=== PATIENT | female | born 1965 | race Caucasian/White ===

== ENCOUNTER 2016-12-30 20:31 | Emergency (ER) | payer MEDICAID ==
[~2016-12-30] VITALS: Ht 162.6 cm; Wt 64.0 kg
[~2016-12-30 20:31] MED LIST: GLIP2.5T; METF500T PO
[2016-12-31 01:09] LABS: CHLORIDE 98 mEq/L (98-107); INDEX HEMOLYSI 1 (1-3); INDEX ICTERIC 1 (1-4); INDEX LIPEMIC 1 (1-3)
[2016-12-31 01:10] LABS: BASOPHILS % 0.4 % (0.0-2.0); EOSINOPHILS % 2.1 % (0.0-5.0); HEMATOCRIT. 35.7 % (36.0-48.0); HEMOGLOBIN. 12.1 g/dL (12.0-16.0); LYMPHOCYTES % 43.9 % (20.0-50.0); MEAN CORPUSCULAR HEMOGLOBIN 30.1 pg (28.0-32.0); MEAN CORPUSCULAR VOLUME 88.5 fL (81.0-99.0); MEAN PLATELET VOLUME 10.1 fl (7.4-10.4); MONOCYTES % 4.7 % (2.0-8.0); NEUTROPHILS % 48.9 % (40.0-76.0); PLATELET 172 x1000/uL (130-400); RED BLOOD CELL COUNT 4.04 mill/uL (4.2-5.4); RED CELL DISTRIBUTION WIDTH 12.7 % (11.6-14.6); WHITE BLOOD COUNT 8.3 x1000/uL (4.5-11.0)
[2016-12-31 01:17] LABS: ANION GAP 12; BETA HYDROXYBUTYRATE 0.1 mMol/L (0.0-0.3); CALCIUM 9.1 mg/dL (8.5-10.1); CARBON DIOXIDE 29 mEq/L (21-32); UREA NITROGEN BLOOD 29 mg/dL (7-21); eGFR > 60 mL/min (>60)
[2016-12-31 02:47] LABS: CLARITY URINE CLEAR (CLEAR); COLOR URINE YELLOW (YELLOW); GLUCOSE URINE TRACE (NEGATIVE); KETONES URINE NEGATIVE (NEGATIVE); LEUKOCYTE ESTERASE URINE 2+ (NEGATIVE); NITRITE URINE NEGATIVE (NEGATIVE); OCCULT BLOOD URINE NEGATIVE (NEGATIVE); PH URINE 5.5 (4.5-8.0); PROTEIN URINE NEGATIVE (NEGATIVE); SPECIFIC GRAVITY URINE 1.011 (1.005-1.030); UROBILINOGEN URINE 0.2 E.U./dL (0.2-1.0)
[2016-12-31 03:11] LABS: BACTERIA URINE TRACE; RBC URINE 0-2 /hpf (0-2); SQUAMOUS EPITHELIAL CELL URINE FEW /lpf (RARE/1+)
[2016-12-31] MEDS ORDERED: LIDOCAINE HCL 1% 20ML VIAL (Pyxis) INJ MC ONE (03:15)
[2016-12-31] MEDS ORDERED: CEFTRIAXONE 1 G PREMIX 50 ML IV ONE (03:15)
[2016-12-31] MEDS ORDERED: CEFTRIAXONE SODIUM 1 G/VIAL IM ONE (03:30)
[2016-12-31] MEDS ORDERED: IBUPROFEN 600MG TABLET PO ONE (04:30)
[2016-12-31 04:36] VITALS: BP 119/71
== END 2016-12-31 04:57 | disposition home or self-care (01) ==
LOC: ER 20:31
DX: L03.115 Cellulitis of right lower limb (principal); E11.65 Type 2 diabetes mellitus with hyperglycemia; R03.0 Elevated blood-pressure reading, without diagnosis of hypertension; Z90.49 Acquired absence of other specified parts of digestive tract
CPT/HCPCS: 36415; 80048; 81001; 82010; 83036; 85025; 87040; 87086; 96372; 99284; J0696; J3490

== ENCOUNTER 2017-01-24 14:19 | Emergency (ER) | payer MEDICAID ==
[~2017-01-24] VITALS: Ht 157.5 cm; Wt 66.0 kg
[2017-01-24 17:22] LABS: CHLORIDE 101 mEq/L (98-107)
[2017-01-24 17:24] LABS: INR 1.1; PROTHROMBIN TIME 10.9 sec
[2017-01-24 17:25] LABS: CALCIUM 8.9 mg/dL (8.5-10.1); INDEX HEMOLYSI 1 (1-3); INDEX ICTERIC 1 (1-4); INDEX LIPEMIC 1 (1-3)
[2017-01-24 17:28] LABS: BASOPHILS % 0.2 % (0.0-2.0); EOSINOPHILS % 0.6 % (0.0-5.0); HEMATOCRIT. 36.2 % (36.0-48.0); HEMOGLOBIN. 12.2 g/dL (12.0-16.0); LYMPHOCYTES % 16.4 % (20.0-50.0); MEAN CORPUSCULAR HEMOGLOBIN 29.7 pg (28.0-32.0); MEAN CORPUSCULAR HGB CONC 33.8 g/dL (31.0-37.0); MEAN CORPUSCULAR VOLUME 87.8 fL (81.0-99.0); MEAN PLATELET VOLUME 9.9 fl (7.4-10.4); MONOCYTES % 5.8 % (2.0-8.0); PLATELET 177 x1000/uL (130-400); RED BLOOD CELL COUNT 4.12 mill/uL (4.2-5.4); RED CELL DISTRIBUTION WIDTH 13.1 % (11.6-14.6); WHITE BLOOD COUNT 11.7 x1000/uL (4.5-11.0)
[2017-01-24 17:31] LABS: ANION GAP 12; CARBON DIOXIDE 27 mEq/L (21-32); UREA NITROGEN BLOOD 22 mg/dL (7-21); eGFR > 60 mL/min (>60)
[2017-01-24 17:33] LABS: NT PRO B-TYPE NATRIURETIC PEP 241 pg/mL (5-125); TROPONIN I < 0.02 ng/mL (0.00-0.04)
[2017-01-24] MEDS ORDERED: KETOROLAC 30MG/ML VIAL IV STA (17:56)
[2017-01-24] MEDS ORDERED: SODIUM CHLORIDE 0.9% 1,000 ML IV ONE (17:56)
[2017-01-24 17:59] LABS: *AMPHETAMINES SCREEN URINE NEGATIVE (NEGATIVE); *BARBITURATES SCREEN URINE NEGATIVE (NEGATIVE); *BENZODIAZEPINES SCREEN URINE NEGATIVE (NEGATIVE); *COCAINE SCREEN URINE NEGATIVE (NEGATIVE); CANNABINOID URINE SCREEN NEGATIVE (NEGATIVE); ECSTASY MDMA SCREEN URINE NEGATIVE (NEGATIVE); METHADONE URINE SCREEN NEGATIVE (NEGATIVE); OPIATES URINE SCREEN NEGATIVE (NEGATIVE); PHENCYCLIDINE URINE SCREEN NEGATIVE (NEGATIVE)
[2017-01-24] MEDS ORDERED: ACETAMINOPHEN 325MG TABLET PO ONE (18:15)
[2017-01-24 18:30] LABS: CLARITY URINE CLOUDY (CLEAR); COLOR URINE YELLOW (YELLOW); GLUCOSE URINE 3+ (NEGATIVE); KETONES URINE NEGATIVE (NEGATIVE); LEUKOCYTE ESTERASE URINE 2+ (NEGATIVE); NITRITE URINE POSITIVE (NEGATIVE); OCCULT BLOOD URINE 1+ (NEGATIVE); PH URINE 5.5 (4.5-8.0); PROTEIN URINE 1+ (NEGATIVE); SPECIFIC GRAVITY URINE 1.019 (1.005-1.030); UROBILINOGEN URINE 0.2 E.U./dL (0.2-1.0)
[2017-01-24 18:52] LABS: BACTERIA URINE 3+; SQUAMOUS EPITHELIAL CELL URINE 1+ /lpf (RARE/1+)
[2017-01-24 18:53] LABS: WBC URINE 50-100 /hpf (0-2)
[2017-01-24] MEDS ORDERED: CEFTRIAXONE 1 G PREMIX 50 ML IV ONE (19:00)
[2017-01-24 20:57] VITALS: BP 101/54
== END 2017-01-24 21:06 | disposition home or self-care (01) ==
LOC: ER 14:19
DX: N10 Acute pyelonephritis (principal); E11.65 Type 2 diabetes mellitus with hyperglycemia; Z90.49 Acquired absence of other specified parts of digestive tract
CPT/HCPCS: 36415; 71010; 80048; 80305; 81001; 81025; 83880; 84484; 85025; 85610; 93005; 96361; 96365; 96375; 99285; J0696; J1885; J7030; Z7610

== ENCOUNTER 2017-02-12 08:49 | Emergency (ER) | payer MEDICAID ==
[~2017-02-12] VITALS: Ht 157.5 cm; Wt 63.3 kg
[2017-02-12] MEDS ORDERED: IBUPROFEN 600MG TABLET PO ONE (12:00)
[2017-02-12 12:05] VITALS: BP 133/82
== END 2017-02-12 12:22 | disposition home or self-care (01) ==
LOC: ER 09:48
DX: L97.919 Non-pressure chronic ulcer of unspecified part of right lower leg with unspecified severity (principal); E11.9 Type 2 diabetes mellitus without complications; E78.00 Pure hypercholesterolemia, unspecified; Z88.5 Allergy status to narcotic agent; Z79.4 Long term (current) use of insulin; Z79.899 Other long term (current) drug therapy; Z90.49 Acquired absence of other specified parts of digestive tract
CPT/HCPCS: 82962; 99283

== ENCOUNTER 2017-04-11 07:50 | Emergency (ER) | payer MEDICAID ==
[~2017-04-11] VITALS: Ht 154.9 cm; Wt 64.0 kg
[2017-04-11 07:51] VITALS: BP 145/83
[2017-04-11] MEDS ORDERED: BACITRACIN ZINC OINT UDPKT TOP ONE (08:45)
[2017-04-11] MEDS ORDERED: LIDOCAINE HCL 1%/EPI 1:200,000 30 ML VIAL MC ONE (08:45)
[2017-04-11] MEDS ORDERED: KETOROLAC 60MG/2ML VIAL IM ONE (08:45)
[2017-04-11] MEDS ORDERED: TETANUS, DIPHTHERIA, PERTUSSIS VAC/PF 0.5ML (>7YR OLD) IM ONE (11:15)
== END 2017-04-11 10:45 | disposition home or self-care (01) ==
LOC: ER 08:52
DX: L02.811 Cutaneous abscess of head [any part, except face] (principal); Z88.8 Allergy status to other drugs, medicaments and biological substances; E11.9 Type 2 diabetes mellitus without complications; E78.00 Pure hypercholesterolemia, unspecified; Z90.49 Acquired absence of other specified parts of digestive tract
CPT/HCPCS: 10060; 90471; 90715; 96372; 99284; J1885; Z7610

== ENCOUNTER 2017-04-13 07:09 | Emergency (ER) | payer MEDICAID ==
[~2017-04-13] VITALS: Ht 154.9 cm; Wt 65.0 kg
[2017-04-13] MEDS ORDERED: IBUPROFEN 600MG TABLET PO ONE (10:30)
[2017-04-13 10:45] VITALS: BP 161/79
== END 2017-04-13 11:57 | disposition home or self-care (01) ==
LOC: ER 09:06
DX: Z48.00 Encounter for change or removal of nonsurgical wound dressing (principal); L02.811 Cutaneous abscess of head [any part, except face]; Z88.8 Allergy status to other drugs, medicaments and biological substances
CPT/HCPCS: 99283; X7700

== ENCOUNTER 2017-06-29 07:22 | Emergency (ER) | payer MEDICAID ==
[~2017-06-29] VITALS: Ht 154.9 cm; Wt 64.0 kg
[2017-06-29 09:12] LABS: BASOPHILS % 0.6 % (0.0-2.0); EOSINOPHILS % 3.2 % (0.0-5.0); HEMATOCRIT. 35.8 % (36.0-48.0); HEMOGLOBIN. 12.5 g/dL (12.0-16.0); LYMPHOCYTES % 28.9 % (20.0-50.0); MEAN CORPUSCULAR HEMOGLOBIN 30.8 pg (28.0-32.0); MEAN CORPUSCULAR VOLUME 87.9 fL (81.0-99.0); MEAN PLATELET VOLUME 9.9 fl (7.4-10.4); MONOCYTES % 6.4 % (2.0-8.0); NEUTROPHILS % 60.9 % (40.0-76.0); PLATELET 155 x1000/uL (130-400); RED BLOOD CELL COUNT 4.07 mill/uL (4.2-5.4); RED CELL DISTRIBUTION WIDTH 13.7 % (11.6-14.6)
[2017-06-29 09:17] LABS: CHLORIDE 99 mEq/L (98-107)
[2017-06-29 09:20] LABS: CARBON DIOXIDE 30 mEq/L (21-32)
[2017-06-29 09:25] LABS: BETA HYDROXYBUTYRATE 0.2 mMol/L (0.0-0.3)
[2017-06-29] MEDS ORDERED: INSULIN REGULAR (HUMULIN R) 300UNITS/3ML SUBCUT ONE (09:45)
[2017-06-29 10:52] VITALS: BP 147/59
== END 2017-06-29 13:44 | disposition home or self-care (01) ==
LOC: ER 08:14
DX: S92.354A Nondisplaced fracture of fifth metatarsal bone, right foot, initial encounter for closed fracture (principal); E11.65 Type 2 diabetes mellitus with hyperglycemia; E78.00 Pure hypercholesterolemia, unspecified; Z88.6 Allergy status to analgesic agent; Z79.4 Long term (current) use of insulin; Z90.49 Acquired absence of other specified parts of digestive tract; X58.XXXA Exposure to other specified factors, initial encounter; Y93.89 Activity, other specified; Y92.018 Other place in single-family (private) house as the place of occurrence of the external cause
CPT/HCPCS: 36415; 73630; 80053; 82010; 82962; 85025; 96372; 99285; J1815; Z7610

== ENCOUNTER 2017-12-05 05:04 | Emergency (ER) | payer MEDICAID ==
[~2017-12-05] VITALS: Ht 154.9 cm; Wt 63.6 kg
[2017-12-05 09:55] VITALS: BP 104/56
== END 2017-12-05 10:06 | disposition home or self-care (01) ==
LOC: ER 05:04
DX: L02.811 Cutaneous abscess of head [any part, except face] (principal); E11.9 Type 2 diabetes mellitus without complications; E78.00 Pure hypercholesterolemia, unspecified; Z90.49 Acquired absence of other specified parts of digestive tract; Z88.6 Allergy status to analgesic agent
CPT/HCPCS: 99283

== ENCOUNTER 2019-09-26 16:59 | Inpatient (IN) | payer MEDICAID, OTHER ==
[~2019-09-26] VITALS: Ht 157.5 cm; Wt 57.6 kg
[2019-09-26] MEDS ORDERED: SODIUM CHLORIDE 0.9% 1000ML BAG (SEPSIS BOLUS) IV ONE (21:30)
[2019-09-26] MEDS ORDERED: CEFTRIAXONE 1 G PREMIX 50 ML IV ONE (21:30)
[2019-09-26 22:46] LABS: CLARITY URINE CLOUDY (CLEAR); COLOR URINE YELLOW (YELLOW); KETONES URINE NEGATIVE (NEGATIVE); LEUKOCYTE ESTERASE URINE 2+ (NEGATIVE); NITRITE URINE POSITIVE (NEGATIVE); OCCULT BLOOD URINE NEGATIVE (NEGATIVE); PROTEIN URINE 1+ (NEGATIVE)
[2019-09-26 22:50] LABS: BASOPHILS % 0.6 % (0.0-2.0); EOSINOPHILS % 1.5 % (0.0-5.0); HEMATOCRIT. 31.4 % (36.0-48.0); HEMOGLOBIN. 11.3 g/dL (12.0-16.0); LYMPHOCYTES % 28.6 % (20.0-50.0); MEAN CORPUSCULAR HEMOGLOBIN 31.4 pg (28.0-32.0); MEAN CORPUSCULAR VOLUME 87.4 fL (81.0-99.0); MEAN PLATELET VOLUME 11.2 fl (7.4-10.4); MONOCYTES % 7.9 % (2.0-8.0); NEUTROPHILS % 61.4 % (40.0-76.0); PLATELET 131 x1000/uL (130-400); RED BLOOD CELL COUNT 3.59 mill/uL (4.2-5.4); RED CELL DISTRIBUTION WIDTH 12.2 % (11.6-14.6)
[2019-09-26 22:55] LABS: CHLORIDE 98 mEq/L (98-107)
[2019-09-27] MEDS ORDERED: MORPHINE SULFATE 4 MG/ML CPJ (NOT FOR IM USE) IV ONE (00:15)
[2019-09-27 12:30] VITALS: BP 128/69
[2019-09-27] MEDS ORDERED: GLIP10TA10 PO (15:06)
[2019-09-27] MEDS ORDERED: METF-416 PO (15:06)
[2019-09-27] MEDS ORDERED: METF-414 MT (15:06)
[2019-09-27] MEDS ORDERED: ACETAMINOPHEN 325MG TABLET PO PRN (15:15)
[2019-09-27] MEDS ORDERED: KETOROLAC 30MG/ML VIAL IV PRN (15:15)
[2019-09-27] MEDS ORDERED: DEXTROSE 50% WATER 50ML SYRINGE IV PRN (15:15)
[2019-09-27] MEDS ORDERED: HYDROCODONE/ACETAMINOPHEN 5/325MG TABLET PO PRN (15:15)
[2019-09-27] MEDS ORDERED: ONDANSETRON HCL 4MG/2ML INJ IV PRN (15:15)
[2019-09-27 16:00] VITALS: BP 152/91
[2019-09-27] MEDS: BLOOD SUGAR DIAGNOSTIC STRIP TEST SCH ×2 (17:15→21:59)
[2019-09-27 17:52] VITALS: BP 128/69
[2019-09-27] MEDS ORDERED: CEFTRIAXONE 1 G PREMIX 50 ML IV SCH (18:00)
[2019-09-27] MEDS ORDERED: INSULIN LISPRO 100 UNITS/ML SUBCUT NR (18:15)
[2019-09-27] MEDS: SODIUM CHLORIDE 0.9% 1,000 ML IV SCH (18:32)
[2019-09-27] MEDS: INSULIN LISPRO 100 UNITS/ML SUBCUT SCH ×2 (18:33→22:03)
[2019-09-27 20:00] VITALS: BP 142/79
[2019-09-27] MEDS: INSULIN GLARGINE UD 100 UNITS/ML SYR SUBCUT SCH (22:05)
[2019-09-28] VITALS: BP 137/80
[2019-09-28 04:00] VITALS: BP 144/80
[2019-09-28] MEDS: BLOOD SUGAR DIAGNOSTIC STRIP TEST SCH ×3 (06:30→16:09)
[2019-09-28] MEDS: SODIUM CHLORIDE 0.9% 1,000 ML IV SCH (06:31)
[2019-09-28] MEDS: INSULIN LISPRO 100 UNITS/ML SUBCUT SCH ×2 (06:39→12:15)
[2019-09-28 06:47] LABS: CHLORIDE 104 mEq/L (98-107)
[2019-09-28 07:39] LABS: BASOPHILS % 0.4 % (0.0-2.0); EOSINOPHILS % 1.3 % (0.0-5.0); HEMATOCRIT. 27.5 % (36.0-48.0); HEMOGLOBIN. 9.8 g/dL (12.0-16.0); LYMPHOCYTES % 28.6 % (20.0-50.0); MEAN CORPUSCULAR HEMOGLOBIN 30.9 pg (28.0-32.0); MEAN CORPUSCULAR VOLUME 86.7 fL (81.0-99.0); MEAN PLATELET VOLUME 10.9 fl (7.4-10.4); MONOCYTES % 8.7 % (2.0-8.0); PLATELET 130 x1000/uL (130-400); RED BLOOD CELL COUNT 3.18 mill/uL (4.2-5.4); RED CELL DISTRIBUTION WIDTH 12.2 % (11.6-14.6)
[2019-09-28 08:00] VITALS: BP 128/80
[2019-09-28] MEDS ORDERED: GLIPIZIDE 10MG TABLET PO SCH (10:15)
[2019-09-28] MEDS: INSULIN GLARGINE UD 100 UNITS/ML SYR SUBCUT SCH (11:09)
[2019-09-28] MEDS ORDERED: LEVO500T2 MT (16:26)
[2019-09-28 17:30] VITALS: BP 116/52
== END 2019-09-28 17:50 | disposition home or self-care (01) | DRG 720 ==
LOC: ER 16:59 → 5WST 09-27 00:16 → EDBEDREQSVC 09-27 00:22 → EDBEDREQ 09-27 00:22 → EDBEDREQTM 09-27 00:22 → ENRESERV 09-27 13:12
PROVIDERS: ADMIT Internal Medicine Nephrology; ATTEND Internal Medicine Nephrology
DX: A41.9 Sepsis, unspecified organism (principal); E44.0 Moderate protein-calorie malnutrition; E11.65 Type 2 diabetes mellitus with hyperglycemia; E87.1 Hypo-osmolality and hyponatremia; K76.0 Fatty (change of) liver, not elsewhere classified; D64.9 Anemia, unspecified; E78.00 Pure hypercholesterolemia, unspecified; E78.5 Hyperlipidemia, unspecified; N13.6 Pyonephrosis; Z90.49 Acquired absence of other specified parts of digestive tract; Z68.23 Body mass index [BMI] 23.0-23.9, adult; Z88.5 Allergy status to narcotic agent; Z79.899 Other long term (current) drug therapy; Z79.84 Long term (current) use of oral hypoglycemic drugs
CPT/HCPCS: 36415; 71045; 74176; 80048; 81003; 82962; 83036; 83605; 84145; 87077; 87186; 99285; J0696; J1815; J2270; J2405; J7030

== ENCOUNTER 2021-08-02 06:28 | Emergency (ER) | payer MEDICAID ==
[~2021-08-02] VITALS: Ht 154.9 cm; Wt 64.0 kg
[~2021-08-02 06:28] MED LIST changes: +GLIP10TA10 PO; -GLIP2.5T; +LEVO500T2 MT; +METF-414 MT; +METF-416 PO; -METF500T PO
[2021-08-02] MEDS ORDERED: KETOROLAC 60MG/2ML VIAL IM ONE (07:15)
[2021-08-02 07:16] VITALS: BP 138/56
[2021-08-02] MEDS ORDERED: IBUP-2028 PO (08:31)
== END 2021-08-02 09:06 | disposition home or self-care (01) ==
LOC: ER 06:28
DX: S93.492A Sprain of other ligament of left ankle, initial encounter (principal); M25.562 Pain in left knee; E11.9 Type 2 diabetes mellitus without complications; W01.0XXA Fall on same level from slipping, tripping and stumbling without subsequent striking against object, initial encounter; Y93.89 Activity, other specified; Y92.89 Other specified places as the place of occurrence of the external cause
CPT/HCPCS: 73590; 73600; 96372; 99284; J1885; Z7610

== ENCOUNTER 2021-12-28 06:05 | Emergency (ER) | payer MEDICAID, OTHER ==
[~2021-12-28] VITALS: Ht 154.9 cm; Wt 62.0 kg
[~2021-12-28 06:05] MED LIST changes: +IBUP-2028 PO
[2021-12-28] MEDS ORDERED: ACETAMINOPHEN 325MG TABLET PO STA (06:42)
[2021-12-28] MEDS ORDERED: SODIUM CHLORIDE 0.9% 1,000 ML IV ONE (06:45)
[2021-12-28] MEDS ORDERED: CEFTRIAXONE 1 G PREMIX 50 ML IV ONE (06:45)
[2021-12-28 07:03] LABS: CLARITY URINE CLOUDY (CLEAR); COLOR URINE YELLOW (YELLOW); KETONES URINE NEGATIVE (NEGATIVE); LEUKOCYTE ESTERASE URINE 2+ (NEGATIVE); NITRITE URINE POSITIVE (NEGATIVE); OCCULT BLOOD URINE 3+ (NEGATIVE); PH URINE 5.5 (4.5-8.0); PROTEIN URINE 3+ (NEGATIVE); SPECIFIC GRAVITY URINE 1.016 (1.005-1.030)
[2021-12-28 07:17] LABS: BASOPHILS % 0.5 % (0.0-2.0); EOSINOPHILS % 2.7 % (0.0-5.0); HEMATOCRIT. 31.9 % (36.0-48.0); HEMOGLOBIN. 11.1 g/dL (12.0-16.0); LYMPHOCYTES % 40.7 % (20.0-50.0); MEAN CORPUSCULAR HEMOGLOBIN 29.9 pg (28.0-32.0); MEAN CORPUSCULAR VOLUME 85.8 fL (81.0-99.0); MEAN PLATELET VOLUME 9.9 fl (7.4-10.4); MONOCYTES % 5.7 % (2.0-8.0); NEUTROPHILS % 50.4 % (40.0-76.0); PLATELET 184 x1000/uL (130-400); RED BLOOD CELL COUNT 3.72 mill/uL (4.2-5.4); RED CELL DISTRIBUTION WIDTH 13.4 % (11.6-14.6)
[2021-12-28 07:25] LABS: CHLORIDE 108 mEq/L (98-107)
[2021-12-28] MEDS ORDERED: IBUP-2029 MT (08:05)
[2021-12-28] MEDS ORDERED: CEPH500T MT (08:05)
[2021-12-28] MEDS ORDERED: KETOROLAC 15MG/ML VIAL IV ONE (08:30)
[2021-12-28 09:50] VITALS: BP 142/81
== END 2021-12-28 10:19 | disposition home or self-care (01) ==
LOC: ER 06:05
DX: N12 Tubulo-interstitial nephritis, not specified as acute or chronic (principal); E11.9 Type 2 diabetes mellitus without complications; E78.00 Pure hypercholesterolemia, unspecified; Z88.5 Allergy status to narcotic agent; Z90.49 Acquired absence of other specified parts of digestive tract
CPT/HCPCS: 36415; 80053; 81003; 85025; 87040; 87077; 87086; 87186; 96365; 99284; J0696; J7030

== ENCOUNTER 2022-03-21 19:42 | Emergency (ER) | payer MEDICAID, OTHER ==
[~2022-03-21] VITALS: Ht 154.9 cm; Wt 65.1 kg
[~2022-03-21 19:42] MED LIST changes: +CEPH500T MT; +IBUP-2029 MT
[2022-03-21 22:20] LABS: BASOPHILS % 0.3 % (0.0-2.0); EOSINOPHILS % 4.2 % (0.0-5.0); HEMATOCRIT. 28.6 % (36.0-48.0); HEMOGLOBIN. 9.9 g/dL (12.0-16.0); LYMPHOCYTES % 25.2 % (20.0-50.0); MEAN CORPUSCULAR HEMOGLOBIN 30.5 pg (28.0-32.0); MEAN CORPUSCULAR VOLUME 88.3 fL (81.0-99.0); MEAN PLATELET VOLUME 9.4 fl (7.4-10.4); MONOCYTES % 7.7 % (2.0-8.0); NEUTROPHILS % 62.6 % (40.0-76.0); PLATELET 187 x1000/uL (130-400); RED BLOOD CELL COUNT 3.24 mill/uL (4.2-5.4); RED CELL DISTRIBUTION WIDTH 12.9 % (11.6-14.6)
[2022-03-21 22:47] LABS: CHLORIDE 107 mEq/L (98-107)
[2022-03-21 22:54] VITALS: BP 169/67
[2022-03-22 00:01] LABS: CLARITY URINE CLOUDY (CLEAR); COLOR URINE YELLOW (YELLOW); KETONES URINE NEGATIVE (NEGATIVE); LEUKOCYTE ESTERASE URINE 1+ (NEGATIVE); NITRITE URINE NEGATIVE (NEGATIVE); OCCULT BLOOD URINE TRACE (NEGATIVE); PH URINE 6.5 (4.5-8.0); PROTEIN URINE 3+ (NEGATIVE); SPECIFIC GRAVITY URINE 1.012 (1.005-1.030); UROBILINOGEN URINE 0.2 E.U./dL (0.2-1.0)
== END 2022-03-21 23:57 | disposition home or self-care (01) ==
LOC: ER 19:42
DX: T78.1XXA Other adverse food reactions, not elsewhere classified, initial encounter (principal); R60.0 Localized edema; E11.9 Type 2 diabetes mellitus without complications; E78.00 Pure hypercholesterolemia, unspecified; Z98.890 Other specified postprocedural states; Z79.84 Long term (current) use of oral hypoglycemic drugs; Z88.5 Allergy status to narcotic agent; X58.XXXA Exposure to other specified factors, initial encounter
CPT/HCPCS: 36415; 71045; 80053; 81003; 82962; 83880; 85025; 87077; 87186; 93970; 99285

== ENCOUNTER 2022-05-02 23:17 | Inpatient (IN) | payer OTHER ==
[~2022-05-02] VITALS: Ht 154.9 cm; Wt 62.6 kg
[2022-05-03 01:39] LABS: BASOPHILS % 0.6 % (0.0-2.0); HEMATOCRIT. 28.3 % (36.0-48.0); HEMOGLOBIN. 9.6 g/dL (12.0-16.0); LYMPHOCYTES % 30.8 % (20.0-50.0); MEAN CORPUSCULAR HEMOGLOBIN 29.1 pg (28.0-32.0); MEAN CORPUSCULAR VOLUME 86.4 fL (81.0-99.0); MEAN PLATELET VOLUME 9.1 fl (7.4-10.4); NEUTROPHILS % 58.6 % (40.0-76.0); PLATELET 204 x1000/uL (130-400); RED BLOOD CELL COUNT 3.28 mill/uL (4.2-5.4); RED CELL DISTRIBUTION WIDTH 13.3 % (11.6-14.6)
[2022-05-03 01:41] LABS: CHLORIDE 105 mEq/L (98-107)
[2022-05-03 01:49] LABS: C REACTIVE PROTEIN QUANT 5.5 mg/L (0.0-3.0)
[2022-05-03] MEDS ORDERED: VANCOMYCIN 1G PREMIX 200 ML IV SCH (02:15)
[2022-05-03] MEDS ORDERED: ACETAMINOPHEN 325MG TABLET PO PRN (10:15)
[2022-05-03] MEDS ORDERED: DEXTROSE 50% WATER 50ML SYRINGE IV PRN (10:15)
[2022-05-03] MEDS ORDERED: ONDANSETRON HCL 4MG/2ML INJ IV PRN (10:15)
[2022-05-03] MEDS: INSULIN LISPRO 100 UNITS/ML SUBCUT SCH ×4 (12:00→21:00)
[2022-05-03] MEDS: BLOOD SUGAR DIAGNOSTIC STRIP TEST SCH ×3 (12:08→20:33)
[2022-05-03 12:48] LABS: CLARITY URINE CLEAR (CLEAR); COLOR URINE YELLOW (YELLOW); KETONES URINE NEGATIVE (NEGATIVE); LEUKOCYTE ESTERASE URINE 2+ (NEGATIVE); NITRITE URINE NEGATIVE (NEGATIVE); OCCULT BLOOD URINE NEGATIVE (NEGATIVE); PROTEIN URINE 2+ (NEGATIVE); UROBILINOGEN URINE 0.2 E.U./dL (0.2-1.0)
[2022-05-03 13:00] VITALS: BP 146/72
[2022-05-03] MEDS ORDERED: ATOR10TA69 PO (14:14)
[2022-05-03] MEDS ORDERED: DULO60CA45 PO (14:14)
[2022-05-03 14:16] VITALS: BP 146/72
[2022-05-03 16:00] VITALS: BP 114/58
[2022-05-03] MEDS ORDERED: HYDROCODONE/ACETAMINOPHEN 10/325MG TABLET PO PRN (17:15)
[2022-05-03] MEDS: LISINOPRIL 20MG TABLET PO SCH (18:37)
[2022-05-03] MEDS: TRAMADOL 50MG TABLET PO PRN (18:38)
[2022-05-03] MEDS: DULOXETINE HCL 30MG DR CAPSULE PO SCH (18:38)
[2022-05-03] MEDS: PIPERACILLIN/TAZOBACTAM 3.375G in DEXT 5% WATER 50ML IV SCH (18:39)
[2022-05-03 20:00] VITALS: BP 106/52
[2022-05-03] MEDS: MORPHINE SULFATE 2 MG/ML CPJ (NOT FOR IM USE) IV PRN (20:54)
[2022-05-03] MEDS ORDERED: INSULIN GLARGINE 100 UNITS/ML SUBCUT SCH (22:00)
[2022-05-04] VITALS: BP 108/50
[2022-05-04 04:00] VITALS: BP 103/56
[2022-05-04] MEDS: PIPERACILLIN/TAZOBACTAM 3.375G in DEXT 5% WATER 50ML IV SCH ×3 (05:09→21:45)
[2022-05-04] MEDS: TRAMADOL 50MG TABLET PO PRN (05:10)
[2022-05-04 06:02] LABS: BASOPHILS % 0.3 % (0.0-2.0); HEMOGLOBIN. 8.8 g/dL (12.0-16.0); LYMPHOCYTES % 32.6 % (20.0-50.0); MEAN CORPUSCULAR VOLUME 85.9 fL (81.0-99.0); MEAN PLATELET VOLUME 9.7 fl (7.4-10.4); NEUTROPHILS % 57.1 % (40.0-76.0); PLATELET 177 x1000/uL (130-400); RED BLOOD CELL COUNT 3.03 mill/uL (4.2-5.4); RED CELL DISTRIBUTION WIDTH 13.3 % (11.6-14.6)
[2022-05-04] MEDS: BLOOD SUGAR DIAGNOSTIC STRIP TEST SCH ×4 (06:56→21:00)
[2022-05-04] MEDS: INSULIN LISPRO 100 UNITS/ML SUBCUT SCH ×4 (07:50→18:43)
[2022-05-04 08:00] VITALS: BP 140/56
[2022-05-04] MEDS ORDERED: PIPERACILLIN/TAZOBACTAM 3.375GM/50ML PREMIX IV SCH (08:00)
[2022-05-04] MEDS: DULOXETINE HCL 30MG DR CAPSULE PO SCH (09:38)
[2022-05-04] MEDS: LISINOPRIL 20MG TABLET PO SCH (09:38)
[2022-05-04 12:00] VITALS: BP 106/53
[2022-05-04] MEDS: MORPHINE SULFATE 2 MG/ML CPJ (NOT FOR IM USE) IV PRN (13:45)
[2022-05-04] MEDS ORDERED: NALOXONE HCL 0.4MG/ML VIAL IV PRN (15:00)
[2022-05-04 16:00] VITALS: BP 95/43
[2022-05-04] MEDS: INSULIN GLARGINE 100 UNITS/ML SUBCUT SCH (21:19)
[2022-05-05] VITALS: BP 99/50
[2022-05-05] MEDS: MORPHINE SULFATE 2 MG/ML CPJ (NOT FOR IM USE) IV PRN ×3 (01:01→23:03)
[2022-05-05 04:00] VITALS: BP 102/46
[2022-05-05] MEDS: PIPERACILLIN/TAZOBACTAM 3.375G in DEXT 5% WATER 50ML IV SCH ×3 (05:21→22:48)
[2022-05-05] MEDS: BLOOD SUGAR DIAGNOSTIC STRIP TEST SCH ×4 (07:20→21:00)
[2022-05-05] MEDS: INSULIN LISPRO 100 UNITS/ML SUBCUT SCH ×4 (07:50→21:00)
[2022-05-05 08:49] VITALS: BP 106/48
[2022-05-05] MEDS: LISINOPRIL 20MG TABLET PO SCH (10:49)
[2022-05-05] MEDS: DULOXETINE HCL 30MG DR CAPSULE PO SCH (10:49)
[2022-05-05 12:15] VITALS: BP 91/48
[2022-05-05 15:31] VITALS: BP 109/54
[2022-05-05] MEDS: TRAMADOL 50MG TABLET PO PRN (18:19)
[2022-05-05 20:00] VITALS: BP 119/44
[2022-05-05] MEDS: INSULIN GLARGINE 100 UNITS/ML SUBCUT SCH (22:58)
[2022-05-06] VITALS: BP 117/52
[2022-05-06 04:00] VITALS: BP 130/68
[2022-05-06] MEDS: TRAMADOL 50MG TABLET PO PRN (06:22)
[2022-05-06] MEDS: PIPERACILLIN/TAZOBACTAM 3.375G in DEXT 5% WATER 50ML IV SCH (06:22)
[2022-05-06] MEDS: BLOOD SUGAR DIAGNOSTIC STRIP TEST SCH ×2 (07:16→12:18)
[2022-05-06] MEDS: INSULIN LISPRO 100 UNITS/ML SUBCUT SCH ×2 (07:50→12:18)
[2022-05-06 08:20] VITALS: BP 143/49
[2022-05-06] MEDS: LISINOPRIL 20MG TABLET PO SCH (09:23)
[2022-05-06] MEDS: DULOXETINE HCL 30MG DR CAPSULE PO SCH (09:23)
[2022-05-06] MEDS: MORPHINE SULFATE 2 MG/ML CPJ (NOT FOR IM USE) IV PRN (09:43)
[2022-05-06] MEDS ORDERED: LEVO500T90 MT (11:12)
[2022-05-06 12:00] VITALS: BP 109/49
[2022-05-06 12:38] VITALS: BP 143/49
[2022-05-06 16:00] VITALS: BP 146/62
== END 2022-05-06 18:45 | disposition home or self-care (01) | DRG 380 ==
LOC: ER 23:36 → MICUSO 05-03 08:30 → 6EST 05-03 12:49
PROVIDERS: ADMIT Internal Medicine; ATTEND Internal Medicine
PROC: 0JBQ0ZZ Excision of Right Foot Subcutaneous Tissue and Fascia, Open Approach (ICD-10-PCS; principal; 2022-05-03)
DX: E11.621 Type 2 diabetes mellitus with foot ulcer (principal); L97.519 Non-pressure chronic ulcer of other part of right foot with unspecified severity; N17.0 Acute kidney failure with tubular necrosis; E44.0 Moderate protein-calorie malnutrition; D64.9 Anemia, unspecified; Z79.2 Long term (current) use of antibiotics; Z68.26 Body mass index [BMI] 26.0-26.9, adult; Z79.84 Long term (current) use of oral hypoglycemic drugs; Z88.6 Allergy status to analgesic agent; Z79.899 Other long term (current) drug therapy; Z98.891 History of uterine scar from previous surgery
CPT/HCPCS: 36415; 73630; 80048; 80053; 80061; 81003; 82962; 83036; 85025; 85651; 86140; 93923; 99285; J1815; J2270; J2543; J3370; J7060

== ENCOUNTER 2022-09-06 03:42 | Emergency (ER) | payer MEDICAID, OTHER ==
[~2022-09-06] VITALS: Ht 160 cm; Wt 66.0 kg
[~2022-09-06 03:42] MED LIST changes: +ATOR10TA69 PO; -CEPH500T MT; +DULO60CA45 PO; +LEVO-65 MT; -LEVO500T2 MT
[2022-09-06 03:46] VITALS: BP 118/72
[2022-09-06] MEDS ORDERED: KETOROLAC 60MG/2ML VIAL IM STA (07:42)
[2022-09-06] MEDS ORDERED: ACETAMINOPHEN 325MG TABLET PO ONE (08:15)
[2022-09-06 08:16] LABS: CLARITY URINE CLEAR (CLEAR); COLOR URINE YELLOW (YELLOW); KETONES URINE NEGATIVE (NEGATIVE); LEUKOCYTE ESTERASE URINE 1+ (NEGATIVE); NITRITE URINE NEGATIVE (NEGATIVE); OCCULT BLOOD URINE NEGATIVE (NEGATIVE); PROTEIN URINE 3+ (NEGATIVE); SPECIFIC GRAVITY URINE 1.014 (1.005-1.030); UROBILINOGEN URINE 0.2 E.U./dL (0.2-1.0)
[2022-09-06] MEDS ORDERED: CEPH500C2 MT (08:55)
[2022-09-06] MEDS ORDERED: TOPUD MT (08:55)
== END 2022-09-06 09:02 | disposition home or self-care (01) ==
LOC: ER 03:42
DX: N12 Tubulo-interstitial nephritis, not specified as acute or chronic (principal); E11.9 Type 2 diabetes mellitus without complications; E78.00 Pure hypercholesterolemia, unspecified; Z88.5 Allergy status to narcotic agent; Z79.899 Other long term (current) drug therapy; Z98.890 Other specified postprocedural states
CPT/HCPCS: 81003; 99283; J1885

== ENCOUNTER 2023-04-12 01:43 | Emergency (ER) | payer MEDICAID, OTHER ==
[~2023-04-12] VITALS: Ht 162.6 cm; Wt 60.0 kg
[~2023-04-12 01:43] MED LIST changes: +CEPH500C2 MT; +TOPUD MT
[2023-04-12 02:14] VITALS: BP 137/53; O2SAT 100
[2023-04-12 02:40] VITALS: PULSE 82; RESP 16
[2023-04-12] MEDS ORDERED: ACETAMINOPHEN 325MG TABLET PO ONE (06:15)
[2023-04-12 06:34] VITALS: TEMP 97.7
[2023-04-12] MEDS ORDERED: IBUP-2029 MT (07:18)
== END 2023-04-12 07:44 | disposition home or self-care (01) ==
LOC: ER 01:43
DX: M54.50 Low back pain, unspecified (principal); E11.9 Type 2 diabetes mellitus without complications; E78.00 Pure hypercholesterolemia, unspecified; Z79.899 Other long term (current) drug therapy; W18.39XA Other fall on same level, initial encounter; Y93.89 Activity, other specified; Y92.89 Other specified places as the place of occurrence of the external cause; Y99.8 Other external cause status
CPT/HCPCS: 71045; 72100; 99284

== ENCOUNTER 2024-10-14 21:41 | Emergency (ER) | payer MEDICAID, OTHER ==
[~2024-10-14] VITALS: Ht 154.9 cm; Wt 66.0 kg
[~2024-10-14 21:41] MED LIST changes: -GLIP10TA10 PO; +GLIP10TA17 PO
[2024-10-14 22:16] VITALS: O2SAT 98
[2024-10-15] MEDS: KETOROLAC 15MG/ML VIAL IM ONE (03:15)
[2024-10-15] MEDS ORDERED: LIDO700A15 TP (05:59)
[2024-10-15] MEDS ORDERED: NAPR-1176 MT (05:59)
[2024-10-15] MEDS ORDERED: METH-653 MT (05:59)
[2024-10-15 06:34] VITALS: BP 138/65; PULSE 72; RESP 17; TEMP 36.89184; O2SAT 100
== END 2024-10-15 06:30 | disposition home or self-care (01) ==
LOC: ER 21:41
DX: M54.40 Lumbago with sciatica, unspecified side (principal); E78.00 Pure hypercholesterolemia, unspecified; E11.40 Type 2 diabetes mellitus with diabetic neuropathy, unspecified; I10 Essential (primary) hypertension; Z79.1 Long term (current) use of non-steroidal anti-inflammatories (NSAID); Z79.84 Long term (current) use of oral hypoglycemic drugs; Z88.5 Allergy status to narcotic agent
CPT/HCPCS: 99283; 72100; 96372; J1885